=== PATIENT | female | born 1960 | race Caucasian/White ===

== ENCOUNTER 2023-02-25 06:24 | Day surgery (SDC) | payer OTHER ==
[~2023-02-25] VITALS: Ht 157.5 cm; Wt 92.2 kg
[~2023-02-25 06:24] MED LIST: ADVIL200 M1 PO; B-100 COMPLEX100 MG PO; FENOFIBRATE145 MG PO; FLUOXETINE HCL20 MG PO; LISINOPRIL-HCT1 EACH PO; MELOXICAM15 MG PO; METFORMIN HCL500 MG PO; VITAMIN D310 MC1 PO
[2023-02-25 06:36] VITALS: BP 168/85
--- NOTE | 2023-02-25 07:18 | NUR ---
PT GONE. PRAYED FOR SUCCESSFUL PROCEDURE AND HANNAH RECOVERY.
--- NOTE | 2023-02-25 07:49 | NUR ---
02/25/23 0749 Amber Dorsey PT TO PACU ALERT AND AWAKE DENIES PAIN AND JOSE PT CAME IN LL POSITION, ROLLED OVER ONTO HER BACK UPON ARRIVING TO PACU.
[2023-02-25 08:11] VITALS: BP 144/78
--- NOTE | 2023-02-25 08:26 | OR ---
[facility] [address], [place] [address] Signed DATE OF OPERATION: 02/25/2023 SURGEON: Adeola Wilks MD PREOPERATIVE DIAGNOSES: 1. Screening. 2. Personal history of colonic polyps in her early 50s. POSTOPERATIVE DIAGNOSES: 1. 6 mm polyp at hepatic flexure (80 cm). 2. Tortuous sigmoid colon. 3. Moderate left-sided diverticulosis. 4. Minimal to moderate external hemorrhoids. PROCEDURE: Colonoscopy with hot biopsy. ESTIMATED BLOOD LOSS: None. INDICATIONS: Rhonda is a 62-year-old obese diabetic female, asked to see me for a screening colonoscopy. She remembers a colonoscopy in her early 50s in [place], [place]. She thinks maybe there were small polyps removed. She was pretty certain she was told to follow up in 10 years. That would suggest these were hyperplastic polyps. She has no lower GI complaints currently. There is no family history of colon cancer or polyps. In the office, I gave Rhonda a pamphlet on colonoscopy. We had reviewed the nature of the test. There is risk including, but not limited to gas bloating, crampy abdominal pain, bleeding, perforation requiring surgery, and missed diagnosis. We also reviewed the written instructions for the bowel prep line by line. She also understands the need for IV conscious sedation. She knows an adult person has to take her home afterwards. She had expressed understanding and wished to proceed. DESCRIPTION OF PROCEDURE: Rhonda was taken into our endoscopy suite and placed in the left lateral decubitus position. She was given 5 mg of Versed and 100 mcg of fentanyl to cover the case. A digital rectal exam was performed and she has minimal to moderate external hemorrhoids. She had good sphincter tone. There were no masses. The adult colonoscope was introduced and advanced under direct visualization of the camera. It took a few minutes to get through her tortuous sigmoid colon. After that, the scope passed nicely up into Electronically Signed By: ADEOLA WILKS MD 02/25/23 0826 PATIENT NAME: RHONDA ADAME OPERATIVE REPORT DATE OF : 58 REPORT #: [id number] PHYSICIAN: ADEOLA WILKS MD PCP: FRANCESCA FLORES PAC REPORT IS CONFIDENTIAL AND NOT TO BE RELEASED WITHOUT AUTHORIZATION [facility] [address], [place] [address] Signed the cecum itself. Her prep was quite good. We could easily see the appendiceal orifice and the ileocecal valve. The scope was then slowly withdrawn. We took pictures throughout for photodocumentation. We found a 6 mm sessile polyp in the distal hepatic flexure at about 80 cm. It was biopsied and completely destroyed with hot biopsy forceps. We did see the diverticula in the left and sigmoid colon. They were moderate in size, few to moderate in number and scattered about. The rectum itself was unremarkable. Upon retroflexion of the scope, we did not see any pathology above the anal canal. After this, the gas was suctioned out and the colonoscope removed. Rhonda tolerated the procedure quite well. RECOMMENDATIONS: I will see Rhonda back in my office in 7 to 14 days to review her results. Adeola Wilks MD ALB/MODL /[id number] cc: MD Francesca Chaparro PA-C Copies: ADEOLA WILKS MD, ERIKA PAC ~ Electronically Signed By: ADEOLA WILKS MD 02/25/23 0826 PATIENT NAME: RHONDA ADAME OPERATIVE REPORT DATE OF : 58 REPORT #: [id number] PHYSICIAN: ADEOLA WILKS MD PCP: FRANCESCA FLORES REPORT IS CONFIDENTIAL AND NOT TO BE RELEASED WITHOUT AUTHORIZATION
== END 2023-02-25 08:19 | disposition home or self-care (01) ==
LOC: OPS 06:24 → DS 06:24 → OPS 07:30 → DS 07:30 → OPS 08:19
PROVIDERS: ATTEND Colon & Rectal Surgery
PROC: 0DBL8ZX Excision of Transverse Colon, Via Natural or Artificial Opening Endoscopic, Diagnostic (ICD-10-PCS; principal; 2023-02-25 07:30)
DX: Z12.11 Encounter for screening for malignant neoplasm of colon (principal); Z86.010 Personal history of colon polyps; I10 Essential (primary) hypertension; E78.5 Hyperlipidemia, unspecified; E66.9 Obesity, unspecified; E11.9 Type 2 diabetes mellitus without complications; Z79.84 Long term (current) use of oral hypoglycemic drugs; Z68.37 Body mass index [BMI] 37.0-37.9, adult; M19.90 Unspecified osteoarthritis, unspecified site; K63.5 Polyp of colon; K57.30 Diverticulosis of large intestine without perforation or abscess without bleeding; K64.4 Residual hemorrhoidal skin tags
CPT/HCPCS: 99153; G0500; J2250; J3010; J7121

== ENCOUNTER 2023-02-26 16:02 | Inpatient (IN) | payer OTHER ==
[~2023-02-26] VITALS: Ht 162.6 cm; Wt 94.3 kg
[2023-02-26 16:49] LABS: BASOPHILS 0.7 % (0-2); EOSINOPHILS 1.1 % (0-6); HEMOGLOBIN 13.7 g/dL (12.0-18.0); LYMPHOCYTES 19.1 % (24-44); MCH 28.7 (27-36); MCHC 33.3 g/dl (30-36); MONOCYTES 6.8 % (0-12); NEUTROPHILS 72.3 % (39-80); PLATELET COUNT 232 K/uL (140-440); RBC 4.77 M/ul (4.3-5.7); RDW 15.1 (10.5-15.0)
[2023-02-26 16:59] LABS: ALBUMIN/GLOBULIN RATIO 1.05 (1.1-2.4); ANION GAP 11.4 (7-21); BILIRUBIN, TOTAL 0.3 ng/dL (0.2-1.0); BUN/CREATININE RATIO 12.12 (6.0-28.6); CALCIUM 8.7 mg/dL (8.5-10.1); CREATININE, SERUM 0.99 mg/dL (0.55-1.02); POTASSIUM 3.4 mmol/L (3.5-5.1); PROTEIN, TOTAL 7.8 g/dL (6.4-8.2)
[2023-02-26 17:08] LABS: BILIRUBIN, URINE NEGATIVE (negative); BLOOD/HGB, URINE TRACE-I (Negative); KETONE, URINE NEGATIVE (Negative); LEUK ESTERASE, URINE NEGATIVE (negative); NITRITE, URINE NEGATIVE (negative); PH, URINE 7.5 (5-7)
[2023-02-26 17:18] LABS: CASTS, URINE NONE SEEN \\lpf; CRYSTALS, URINE NONE SEEN (0-1+); EPITHELIAL CELLS, URINE 0 /lpf (0-1+); WHITE BLOOD CELLS, URINE 0-1 /HPF (0-5)
[2023-02-26 17:19] LABS: BACTERIA, URINE NONE SEEN /hpf (negative); COLLECTION TYPE, URINE CLEAN CATCH; REFLEX CULTURE, URINE No (No)
--- NOTE | 2023-02-26 19:53 | NUR ---
THIS NURSE RECEIVED REPORT FROM CARLOS A MCINTOSH. PATIENT REMAINS IN ER HEADED TO SURGERY AT THIS TIME PER DR. WILKS. REPORT GIVEN TO AMANDA MCINTOSH.
--- NOTE | 2023-02-26 20:43 | NUR ---
NOTIFIED PT THAT PT CASE IS "JUST STARTING " PER JAGDEEP FROM SURGERY. IN ROOM ALONE, TEARS DOWN FACE, WORRIED ABOUT HIS . REASSURANCE GIVEN, MORE FAMLIY PLANNING TO COME. DENIED NEEDS.
--- NOTE | 2023-02-26 22:14 | CONS ---
[facility] [address] [place], [place] [address] Signed DATE OF CONSULTATION: 02/26/2023 CHIEF COMPLAINT: Right lower quadrant abdominal pain. HISTORY OF PRESENT ILLNESS: Rhonda is a 62-year-old, obese, diabetic female, asked to see me initially for a screening colonoscopy. We did a colonoscopy yesterday. We took a biopsy from what we thought was the hepatic flexure 80 cm. There was a small polyp about 6 mm. She developed pain actually in the right lower quadrant and then she came to the emergency room. She had a right upper quadrant ultrasound and the pelvic ultrasound, which were not helpful. The CT scan shows some inflammation and some retroperitoneal air along that right colon. White count unremarkable, but she certainly has localized peritonitis. I have been asked by the ER physician and come see her here in the emergency room. In the meantime, she has received Rocephin and Flagyl. PAST MEDICAL HISTORY: Depression, hypertension, diabetes, hyperlipidemia, obesity. PAST SURGICAL HISTORY: Includes a colonoscopy in [place], [place] in 2012 and a colonoscopy with Dr. Wilks 02/25/2023. FAMILY HISTORY: Mom had lung cancer. Sister had lung cancer. SOCIAL HISTORY: She is to Cas, at [phone]. Prachi Esparza is her primary care provider. She prefers to [facility]. She has three children. 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 REVIEW OF SYSTEMS: She had 10 systems reviewed and really nothing new to add after being seen her yesterday. ALLERGIES: None. MEDICATIONS: Metformin 500 mg one tablet p.o. b.i.d., vitamin D 1000 unit tablet p.o. daily, lisinopril/hydrochlorothiazide (20/12.5 mg) one tablet p.o. daily, fluoxetine 20 mg one p.o. daily, fenofibrate 145 mg one p.o. daily. PHYSICAL EXAMINATION: Electronically Signed By: ADOELA WILKS MD 02/26/23 2214 PATIENT NAME: RHONDA ADAME CONSULTATION DATE OF : 58 REPORT #: [id number] PHYSICIAN: ADEOLA WILKS MD PCP: PRACHI ESPARZA PAC REPORT IS CONFIDENTIAL AND NOT TO BE RELEASED WITHOUT AUTHORIZATION [facility] [address] [place], [place] [address] Signed VITAL SIGNS: Her blood pressure is 155/78, her heart rate is 85, respiratory rate 22, temperature is 98.6, room air sat is 93% to 98%. She is 5 feet 4 inches, at 92 kg with a body mass index of 35. GENERAL: Rhonda is lying supine here in her ER bed with her , Cas at the bedside. She is complaining of some localized pain in the right lower quadrant. She is not systemically ill or toxic. LUNGS: Clear to auscultation bilaterally. HEART: Regular rate and rhythm without murmurs. ABDOMEN: Obese, but soft. She has some localized peritonitis in the right lower quadrant. LABORATORY DATA: Her white blood count 9.9, hemoglobin 13, neutrophils 72. The electrolytes unremarkable. BUN 12, creatinine 0.99. LFTs are negative. Albumin 4.0, lipase 46. RADIOGRAPHIC STUDIES: I reviewed her ultrasound of right upper quadrant and the pelvis and they were unremarkable. I reviewed the CT scan images well as the report, she does have some thickening in the right colon with some retroperitoneal air near the cecum and up the right colon. ASSESSMENT/PLAN: Rhonda is a 62-year-old obese diabetic female, who has a perforation from her biopsy yesterday during colonoscopy. She and her understand there are times these can heal with conservative measures and antibiotics. However, I think based on her presentation and her CT scan findings, it is probably best we take her to the operating room for laparotomy and repair of this perforation. Occasionally, we do have to resect, but generally we can oversew the perforation. There is risk including, but not limited to bleeding, infection, scarring, change in contour of the skin as well as recurrent perforation or anastomotic leak, incisional hernias and other unforeseen comorbidities. We also reviewed the expected intraop and postop course. They have expressed understanding and wished to proceed. Adeola Wilks MD ALB/MODL /[id number] Electronically Signed By: ADEOLA WILKS MD 02/26/23 2214 PATIENT NAME: RHONDA ADAME CONSULTATION DATE OF : 58 REPORT #: [id number] PHYSICIAN: ADEOLA WILKS MD PCP: PRACHI ESPARZA PAC REPORT IS CONFIDENTIAL AND NOT TO BE RELEASED WITHOUT AUTHORIZATION [address] [address] Signed cc: KYLIE Chen MD Copies: PRACHI ESPARZA ANDREW L MD ~ Electronically Signed By: ADEOLA WILKS MD 02/26/23 2214 PATIENT NAME: RHONDA ADAME CHECO CONSULTATION DATE OF : 58 REPORT #: [id number] PHYSICIAN: ADEOLA WILKS MD PCP: PRACHI ESPARZA REPORT IS CONFIDENTIAL AND NOT TO BE RELEASED WITHOUT AUTHORIZATION
--- NOTE | 2023-02-26 22:18 | NUR ---
CHECKED ON PT FAMILY. DOING FINE, QUESTIONS ANSWERED. NO NEEDS AT THIS TIME.
--- NOTE | 2023-02-26 23:00 | NUR ---
PT ARRIVED FROM PACU ACCOMPAINED BY ARNALDO LUTHER. REPORT RECEIVED. PT WAKES UP TO VOICE, RESPONDS TO FAMILY. 1.5L NC, STATES SHE HAS MILD SLEEP APNEA VIA A HOME TEST. MEADOWS PATENT, PEE URINE. MIDLINE ABD DRESSING C/D/I. RIGHT DOMONIQUE DRAIN DRESSING C/D/I, BULB WITHOUT DRAINAGE WAS JUST EMPTIED IN PACU.
[2023-02-26 23:20] VITALS: BP 143/65
--- NOTE | 2023-02-26 23:29 | NUR ---
02/26/23 2329 Anderson,Radha Heller 2204: PATIENT ARRIVES TO PACU WITH ORAL AIRWAY IN PLACE. REQUIRES JAW HOLDING. NO RESPONSE TO STIMULUS. 2207: LOW BP. PULMONARY NURSE PRACTITIONER AT BEDSIDE. EPHEDRINE GIVEN BY PULMONARY NURSE PRACTITIONER. 2217: BP LOW. SECOND DOSE OF EPHEDRINE GIVEN BY PULMONARY NURSE PRACTITIONER. NO RESPONSE TO STIMULUS. 2220: ORAL AIRWAY OUT. PATIENT OPENS EYES, BUT FALLS BACK TO SLEEP. 2226: O2 VIA MASK LOWERED TO 10 L/MIN. PATIENT OBSTRUCTING WHILE SLEEPING. REQUIRES INTERMITTENT JAW HOLDING. 2235: PATIENT FREQUENTLY AWAKENED TO TAKE DEEP BREATHS. CONTINUES TO OBSTRUCT WHILE SLEEPING. 2245: O2 MASK REMOVED. PATEINT ON ROOM AIR. 2247: NASAL CANNULA PLACED ON PATIENT AT 2 L/MIN. HEAD OF BED RAISED. DENIES PAIN. DENIES NAUSEA. 2300: PATIENT TRANSFERRED TO MED-SURG ROOM. 2310: PATIENT TOLERATED TRANSFER WELL. MORE AWAKE ONCE IN ROOM WITH FAMILY. REPORT GIVEN TO MED-WEARING APPAREL SHAKER.
[2023-02-27] VITALS (8 sets, daily range): BP systolic 123–140; BP diastolic 61–71
--- NOTE | 2023-02-27 00:41 | NUR ---
ADMISSION PROCESS COMPLETED, ASSESSMENT; 1HOUR VS COMPLETED. CPOX IN PLACE, CONTINUES ON 1.5L O2 SATS IN MID 90'S. DRESSINGS UNCHANGED; MEADOWS UNCHANGED. DRANK 300 ML WATER; A/O, SLEEPY. COMPLAINS OF 5/10 PAIN RIGHT SIDE ABD/DOMONIQUE DRAIN AREA. MEDICATED WITH ONE NORCO. DRANK PART OF BEEF BROTH OFFERED TO HER. SCD'S IN PLACE. REMAINS AT BEDSIDE; PLANS TO STAY THE NIGHT.
--- NOTE | 2023-02-27 01:25 | NUR ---
POST SURGERY VS COMPLETED. PT MOSTLY SLEEPY, RESPONDS TO VOICE. STATES PAIN IS BETTER. MIDLINE/BIANCA DRESSINGS C/D/I. BIANCA WITH SMALL AMOUNT SEROSANGUINEOUS DRAINAGE. MEADOWS WITH PEE URINE. SCD'S IN PLACE, CPOX CONTINUES. ON COUCH SL SNORING.
--- NOTE | 2023-02-27 02:27 | NUR ---
PATIENT RESTING COMFORTABLY IN BED WITH EYES CLOSED. BREATHING EVEN AND UNLABORED. O2 IN PLACE AT 1.5 LITERS NC. CONTINUOUS PULSE OX IN PLACE. IV FLUIDS INFUSING. IV SITE WNL. SCD'S IN PLACE. AT BEDSIDE. NO NEEDS EXPRESSED AT THIS TIME. CALL LIGHT IN REACH. SAFETY PRECAUTIONS IN PLACE.
--- NOTE | 2023-02-27 04:50 | NUR ---
VS I/O COMPLETE. ASSESSMENT UNCHANGED; ABD DRESSING INTACT C/D/I. 10 ML SENGUINOUS DRAINAGE. MEADOWS WITH PEE URINE. IV UNCHANGED. PT AWAKE, SATS MID 90'S 1.5 L, NOW ON RA. CPOX READING 96%. STATED PAIN, MEDICATED WITH TYLENOL. AT BEDSIDE, OFFERED CLEARS, ACCEPTED ONLY WATER. STATES SHE SLEPT WELL.
[2023-02-27 05:28] LABS: BASOPHILS 0.4 % (0-2); HEMATOCRIT 36.8 % (35.0-50.0); HEMOGLOBIN 12.1 g/dL (12.0-18.0); LYMPHOCYTES 7.5 % (24-44); MCH 28.3 (27-36); MCV 85.8 fl (81-99); MONOCYTES 4.2 % (0-12); NEUTROPHILS 87.9 % (39-80); PLATELET COUNT 194 K/uL (140-440); RBC 4.28 M/ul (4.3-5.7); RDW 15.3 (10.5-15.0)
[2023-02-27 05:39] LABS: ANION GAP 15.2 (7-21); BUN/CREATININE RATIO 8.62 (6.0-28.6); CALCIUM 8.1 mg/dL (8.5-10.1); CREATININE, SERUM 1.16 mg/dL (0.55-1.02); MAGNESIUM 1.7 mg/dL (1.8-2.4); PHOSPHORUS, INORGANIC 3.2 mg/dL (2.5-4.9); POTASSIUM 3.2 mmol/L (3.5-5.1)
--- NOTE | 2023-02-27 06:24 | NUR ---
PT A/O, ADMITTED AFTER LAPAROTOMY FOR PERFORATED BOWEL. COLONSCOPY WITH POLYP REMOVED ON 02/25/23. 1.5LNC WHILE SLEEP, FAMILY STATES PT HAS SLEEP APNEA BUT NEEDS A SLEEP STUDY. CURRENTLY ON ROOM AIR, CPOX READING MID 90'S. GAUZE AND TAPE COVER MIDLINE INCISION, C/D/I. RQ DOMONIQUE DRAIN SITE WITH GAUZE AND TAPE, 10 MLS REMOVED THIS AM. MEADOWS, WHICH IS NOT CHRONIC WITH QS PEE URINE. SCD'S IN PLACE PER ORDER. ON CLEARS, GIVEN BEEF BROTH THIS AM, DRINKING ICE WATER WELL. D5LR INFUSES INTO RHAND IV. PT WITH SUPPORTING AND FAMILY.
--- NOTE | 2023-02-27 06:33 | OR ---
[facility] [address] [place], [place] [address] Signed DATE OF OPERATION: 02/26/2023 SURGEON: Adeola Wilks MD PREOPERATIVE DIAGNOSIS: Post polypectomy colonic perforation (hepatic flexure). POSTOPERATIVE DIAGNOSIS: Post polypectomy colonic perforation (hepatic flexure). PROCEDURE: 1. Laparotomy. 2. Primary repair of large bowel perforation in two layers (hepatic flexure). 3. Drain placement posterior hepatic flexure. ESTIMATED BLOOD LOSS: None. FINDINGS: Rhonda indeed had a perforation at the hepatic flexure posteriorly in the retroperitoneum. We could see the air bubble little swelling. We mobilized that hepatic flexure up to where we could see the actual perforation and closed in two layers. INDICATIONS: Rhonda is a 62-year-old, obese, diabetic female, asked to see me for a screening colonoscopy. We did that for her yesterday. We took out a small 6 mm polyp hot biopsy forceps at the hepatic flexure. She developed pain actually down near her right lower quadrant. She had come into the emergency room to be evaluated. Her white count was normal. Vital signs were fine. Ultrasound of the pelvis was unremarkable. Ultrasound of the right upper quadrant showed gallstones, but no other issues. She finally had a CT scan of abdomen and pelvis and it showed the bowel wall thickening in the retroperitoneal air. Of course, I was called by the emergency room physician to come see her in the emergency room. I had met with Rhonda and her , Cas. In the meantime, she did receive her Rocephin and Flagyl along with her subcutaneous heparin. I explained to Rhonda and her that sometimes these can heal with conservative measures, but I felt based on her presentation and her CT scan findings and her overall health status, it was better we take her to the operating room for a laparotomy and primary repair. It is very rare we have to actually resect sections of the colon. I reviewed within the expected intraop and postop course. There is risk of course, Electronically Signed By: ADEOLA WILKS MD 02/27/23 0633 PATIENT NAME: RHONDA ADAME OPERATIVE REPORT DATE OF : 58 REPORT #: [id number] PHYSICIAN: ADEOLA WILKS MD PCP: FRANCESCA FLORES PAC REPORT IS CONFIDENTIAL AND NOT TO BE RELEASED WITHOUT AUTHORIZATION [facility] [address] [place] [id number] Signed including, but not limited to bleeding, infection, scarring, change in contour of the skin as well as continued leak from the bowel or other unforeseen comorbidities including incisional hernias. They had expressed understanding and wished to proceed. DESCRIPTION OF PROCEDURE: We took Rhonda to the operating room and placed in the supine position. She was placed under general endotracheal tube anesthesia. SCDs were utilized. A Santana catheter was inserted without difficulty with return of clear yellow urine. She was prepped and draped in the usual sterile fashion. A standard periumbilical incision was made, carried in the abdomen bluntly with the cautery. She has a small umbilical hernia containing fat, so we divided that from the fascia and reduced all the fat from the hernia sac and discarded the fat. With our Hunter and Worton retractors, we worked our way over to the hepatic flexure and I could see some air bubbles laterally in the retroperitoneum. I took down the hepatic flexure of the cautery simply rolled the hepatic flexure up until we could see some soiling and sure enough we found a small perforation there may be 3 mm in diameter. We placed a moist lap behind that to just keep the hepatic flexure up into our operative field. I then closed in two layers with Vicryl and silk sutures. The wound was then irrigated and suctioned out until clear. We brought a #10 flat Raad drain through the abdominal wall and we just placed underneath the area of hepatic flexure. We left the hepatic flexure down over top of that. The drain was held in place with an interrupted 2-0 nylon suture at the level of the skin. The small bowel was put back into position and covered with the omentum. We then closed the abdominal wall with interrupted hepecd-ad-awwad #1 PDS sutures. The umbilicus was brought back down to the midline fascia with an interrupted 2-0 PDS suture. Local anesthetic was copiously injected into the abdominal wall and subcutaneous tissues. The wound was irrigated and suctioned out until clear. We brought the dermis back together with interrupted 3-0 subcuticular Monocryl sutures. Skin edges were reapproximated with sherry. Dry gauze and tape were then applied. We left her Santana catheter in place. She was transferred over to her hospital bed, weaned from her anesthesia, extubated in the OR, and taken to recovery room in stable condition. Adeola Wilks MD ALB/MODL /[id number] Electronically Signed By: ADEOLA WILKS MD 02/27/23 0633 PATIENT NAME: RHONDA ADAME OPERATIVE REPORT DATE OF : 58 REPORT #: [id number] PHYSICIAN: ADEOLA WILKS MD PCP: FRANCESCA FLORES REPORT IS CONFIDENTIAL AND NOT TO BE RELEASED WITHOUT AUTHORIZATION [address] [address] Signed cc: MD Francesca Chaparro PA-C Copies: ADEOLA WILKS MD, ERIKA PAC ~ Electronically Signed By: ADEOLA WILKS MD 02/27/23 0633 PATIENT NAME: RHONDA ADAME OPERATIVE REPORT DATE OF : 58 REPORT #: [id number] PHYSICIAN: ADEOLA WILKS MD PCP: FRANCESCA FLORES REPORT IS CONFIDENTIAL AND NOT TO BE RELEASED WITHOUT AUTHORIZATION
--- NOTE | 2023-02-27 06:58 | NUR ---
REPORT RECEIVED FROM ARNALDO PATEL. PT AWAKE AND ALERT, WATCHING TV, AT BEDSIDE. DR. WILKS TO BEDSIDE FOR ROUNDS, UPDATED BY THIS RN AND ARNALDO PATEL. NEW IV FLUIDS STARTED, IV REMAINS WNL WITH NO S/S OF PHELBITIS PRESENT. DR WILKS UPDATED ON PT STATUS. PT AND FAMILY VERBALIZE UNDERSTANDING OF PLAN OF CARE. NO ADDITIONAL REQUESTS OR COMPLAINTS. CALL LIGHT WITHIN REACH. BED RAILS UP. THIS RN ASSUMING CARE OF PT WITH ARNALDO OLIVAS.
--- NOTE | 2023-02-27 07:14 | EKG ---
[facility] [address] [facility] [place], [place] [address] Signed Normal sinus rhythm Nonspecific ST and T wave abnormality Abnormal ECG No previous ECGs available Confirmed by SYMONE TRUJILLO MD ([id number]) on 02/27/2023 7:14:24 AM Electronically Signed By: SYMONE TRUJILLO 02/27/23 0714 PATIENT NAME: CAMRON ADAME CHECO Electrocardiogram DATE OF : 58 PHYSICIAN: SYMONE TRUJILLO REPORT #: [id number] REPORT IS CONFIDENTIAL AND NOT TO BE RELEASED WITHOUT AUTHORIZATION
--- NOTE | 2023-02-27 07:43 | NUR ---
REPORT RECIEVED FROM ARNALDO PATEL. PT LYING IN BED AWAKE AND ALERT, AND DR. WILKS AT THE BEDSIDE. BED RAILS UP, CALL LIGHT WITHIN REACH. ASSUMING CARE OF PT WITH ARNALDO MARIEE.
--- NOTE | 2023-02-27 08:38 | NUR ---
MORNING ASSESSMENT AND MEDICATION DUE, MEDICATION GIVEN (SEE EMAR). PT REPORTS 3/10 PAIN IN R ABDOMINAL AREA, STATES "IT'S NOTHING LIKE IT WAS YESTERDAY, SO THAT'S MUCH BETTER". PT REQUESTS PAIN MEDICATION WHEN AVAILABLE, GIVEN (SEE EMAR). MEADOWS CATHETER DC'D PER ORDER, DC'D WNL, CATHETER TIP INTACT, 10ML REMOVED FROM BALLOON PRIOR TO REMOVAL, TOLERATED WELL. QUANTITY SUFFICIENT CLEAR YELLOW URINE EMPTIED FROM BAG. LUNG SOUNDS CLEAR IN ALL LOBES, CPOX REMAINS IN PLACE, O2 SATURATION >92%. GENERALIZED EDEMA PRESENT IN BOTH HANDS, NO EDEMA IN BLE. PT DENIES ANY NUMBNESS OR TINGLING. SCDs IN PLACE WHILE PT IN BED, REMOVED WHEN PT AMBULATED TO CHAIR FOR BREAKFAST. MILD ABDOMINAL DISTENTION PRESENT, PT STATES R SIDE IS TENDER TO PALPATION. BOWEL TONES PRESENT, HYPOACTIVE. PT DENIES NAUSEA AT THIS TIME, LAST BM WAS "YESTERDAY MORNING" PER PT. PT TOLERATING CLEAR LIQUID DIET WELL. SURGICAL INCISION WNL, NO REDNESS/SWELLING, LEIGHTON INTACT, SCANT AMOUNT OF SEROSANGUINOUS DRAINAGE NOTED ON GOWN, NEW GOWN OFFERED, REFUSED BY PT. PT AFEBRILE THIS MORNING, NO QUESTIONS OR CONCERNS AT THIS TIME, FAMILY AT THE BEDSIDE VISITING. CALL LIGHT WITHIN REACH, CHAIR LOCKED.
--- NOTE | 2023-02-27 09:32 | NUR ---
IN TO ANSWER CALL LIGHT. PT REPORTING TOILETING NEEDS. SBA FROM RECLINER TO RESTROOM. 250ML VOID NOTED. SBA FROM RESTROOM BACK TO RECLINER. NEW GOWN PROVIDED. PT DENIES ANY OTHER NEEDS AT THIS TIME. CALL LIGHT IN REACH. FAMILY IN ROOM.
[2023-02-27] MEDS ORDERED: CELEBREX200 MG PO ×2 (09:34)
--- NOTE | 2023-02-27 09:34 | NUR ---
MED REC COMPLETE
--- NOTE | 2023-02-27 10:17 | NUR ---
PT UP TO CHAIR VISITING WITH DAUGHTER AND SON IN LAW. PT REQUESTS ADDITIONAL LEMON ICE TO SOOTHE THROAT FROM SURGERY, GIVEN. PT STATES PAIN REMAINS AT 2-3/10 BUT "IS BETTER THAN EARLIER THIS MORNING". PT STATES NO FURTHER NEEDS AT THIS TIME, CALL LIGHT WITHIN REACH, CHAIR IN LOCKED POSITION.
--- NOTE | 2023-02-27 11:19 | NUR ---
HOURLY ROUNDING, PT UP TO CHAIR CONTINUES TO VISIT WITH FAMILY. PT STATES PAIN IS "ABOUT THE SAME BEFORE" AND REQUESTS PAIN MEDICATION THE NEXT TIME IT IS DUE. PT UP TO RESTROOM WITH SBA AND LINE AND TUBE MANAGEMENT. PT BACK TO CHAIR, FOOT OF CHAIR RAISED. PT ON PHONE WITH SISTER. PT STATES NO FURTHER NEEDS AT THIS TIME, CALL LIGHT WITHIN REACH, CHAIR IN LOCKED POSITION.
--- NOTE | 2023-02-27 12:41 | NUR ---
HOURLY ROUNDING. PT UP TO CHAIR VISITING WITH FAMILY. PT UP FOR WALK WITH THIS RN 1 LAP AROUND UNIT WITH LINE AND TUBE MANAGEMENT. PT STATES "I FEEL PRETTY GOOD" DURING WALK. PT BACK TO ROOM TO SHOWER, IV SALINE LOCKED AND COVERED FOR SHOWER. CPOX OFF DURING SHOWER. PT STATES SHE FEELS COMFORTABLE TAKING HER SHOWER INDEPENDENTLY IN SHOWER CHAIR, PT INSTRUCTED TO PULL CALL LIGHT IN SHOWER WHEN FINISHED FOR AMBULATING BACK TO CHAIR. SHOWER SUPPLIES, ORAL CARE SUPPLIES, TOWELS, AND NEW GOWN AND SOCKS PROVIDED TO PT. PT STATES NO FURTHER NEEDS AT THIS TIME, FAMILY IN ROOM.
--- NOTE | 2023-02-27 12:59 | NUR ---
PT BACK TO CHAIR AFTER SHOWER, IVF CONTINUED PER ORDER. CPOX DC'D PER PROTOCOL. PT REQUESTS PAIN MEDICATION AT THIS TIME, REPORTS 3/10 PAIN IN R ABDOMEN, GIVEN (SEE EMAR). PT STATES NO FURTHER NEEDS AT THIS TIME, CALL LIGHT WITHIN REACH, FAMILY AT THE BEDSIDE, CHAIR IN LOCKED POSITION.
--- NOTE | 2023-02-27 14:07 | NUR ---
AFTERNOON ASSESSMENT. PT STATES PAIN IS "ABOUT THE SAME BEFORE", DENIES NEED FOR PAIN MEDICATION AT THIS TIME. IVF CONTINUOUS PER ORDER, ABX GIVEN PER ORDER. LUNG SOUNDS CLEAR, O2 SAT >95%. EDEMA IN BILAT HANDS IMPROVING. PT BACK IN BED VISITING WITH FAMILY, SCDs NOT IN PLACE D/T PT AMBULATING FREQUENTLY. BOWEL TONES NOW ACTIVE, ABDOMEN REMAINS MILDLY DISTENDED, TENDER TO PALPATION. PT STATES "IT FELT LIKE I ALMOST PASSED SOME GAS". PT TOLERATING CLEAR LIQUID DIET WELL. PT VOIDING QUANTITY SUFFICIENT CLEAR YELLOW URINE. SURGICAL INCISION C/D/I, MEASURED (SEE WOUND ASSESSMENT), LEIGHTON IN PLACE, NO REDNESS/SWELLING IN THE AREA. DOMONIQUE DRAIN INSERTION SITE C/D/I, SEROSANGUINOUS DRAINAGE IN TUBING AND BULB, TUBE STRIPPED AND BULB EMPTIED, SUCTION REAPPLIED. PT STATES NO FURTHER NEEDS AT THIS TIME, CALL LIGHT WITHIN REACH, FAMILY AT THE BEDSIDE, BED RAILS UP.
--- NOTE | 2023-02-27 15:39 | NUR ---
HOURLY ROUNDING. PT LYING IN BED VISITING WITH FAMILY. PT STATES "I FEEL NO PAIN NOW". PT STATES NO FURTHER NEEDS AT THIS TIME, CALL LIGHT WITHIN REACH, BED RAILS UP.
--- NOTE | 2023-02-27 16:37 | NUR ---
HOURLY ROUNDING. PT LYING IN BED WATCHING TV WITH FAMILY. PT STATES NO NEEDS AT THIS TIME AND STATES PAIN CONTINUES TO BE 0/10. CALL LIGHT WITHIN REACH, BED RAILS UP.
--- NOTE | 2023-02-27 16:49 | NUR ---
PT HERE FOR PERFORATED BOWEL, LAPAROTOMY DONE ON 02/26/23. SBA WITH LINE AND TUBE MANAGEMENT, PT STEADY ON FEET. PT TOLERATES CLEAR LIQUID DIET WELL. NO BM OR PASSING GAS YET THIS SHIFT. CPOX DC'D THIS SHIFT PER PROTOCOL AND O2 SATURATION HAS BEEN >94% CONSISTENTLY. PT STARTED BACK ON METFORMIN DOSE TODAY, PRN BLOOD GLUCOSE CHECKS. MEADOWS CATHETER DC'D THIS MORNING PER ORDER, PT VOIDING QUANTITY SUFFICIENT CLEAR YELLOW URINE. PAIN HAS BEEN <3/10 TODAY, PT REQUESTED PRN PAIN MEDICATION WHEN DUE THIS SHIFT. INCISION IS C/D/I, EDGES WELL APPROXIMATED WITH SCANT SEROSANGUINOUS DRAINAGE THROUGHOUT SHIFT. SURGICAL DRESSINGS REMOVED THIS MORNING BY DR. WILKS AT THE BEDSIDE. DOMONIQUE DRAIN IN PLACE, DRAINING SMALL AMOUNTS OF SEROUS FLUID THROUGHOUT SHIFT.R HAND IV PATENT AND IVF CONTINUOUS PER ORDER. PT USES CALL LIGHT APPROPRIATELY AND HAS MANY FAMILY MEMBERS IN AND OUT OF ROOM THROUGHOUT THE DAY.
--- NOTE | 2023-02-27 17:19 | NUR ---
HOURLY ROUNDING. PT LYING IN BED WITH LIGHTS OFF, AT THE BEDSIDE. PT STATES "I THINK I OVERDID IT A LITTLE TODAY" AND STATES PAIN IS NOW A 6/10, REQUESTS PAIN MEDICATION, GIVEN (SEE EMAR). EDUCATION PROVIDED ON PAIN CONTROL MEASURES AND USING CALL LIGHT. PT STATES SHE IS HAVING "BACK SPASMS WITH THE PAIN. PT UP TO RESTROOM, VOIDS CLEAR YELLOW URINE, BACK TO BED VIA SBA AND LINE AND TUBE MANAGEMENT. REMAINS AT THE BEDSIDE, PT STATES NO FURTHER NEEDS AT THIS TIME, CALL LIGHT WITHIN REACH, BED RAILS UP.
--- NOTE | 2023-02-27 18:10 | NUR ---
HOURLY ROUNDING, PT STATES PAIN CONTINUES TO BE 6/10. REQUESTING ADDITIONAL PAIN MEDICATION, GIVEN (SEE EMAR). INCISION AND DOMONIQUE DRAIN SITES ASSESSED, WNL. PT STATES PAIN IS AROUND DRAIN AREA, STATES SHE FEELS LIKE SHE NEEDS TO "PASS GAS" BUT HAS NOT YET. EDUCATION ON MOVEMENT POST-OP AND HELPING WITH PAIN, PT VERBALIZES UNDERSTANDING. PT STATES SHE WOULD LIKE TO REST AFTER PAIN MEDICATION GIVEN, STATES SHE WOULD LIKE TO USE THE NC O2 AGAIN TONIGHT, VITALS TAKEN AND O2 SAT DOWN TO 87% AFTER PT BEGINS TO FALL ASLEEP, 1.5L NC IN PLACE, O2 SAT BACK UP TO 96%. PT STATES NO FURTHER NEEDS AT THIS TIME, CALL LIGHT WITHIN REACH, BED RAILS UP, AT THE BEDSIDE.
--- NOTE | 2023-02-27 19:45 | NUR ---
REPORT RECEIVED FROM DAY SHIFT NURSE. PT REQUESTING PAIN MEDICATIONS AT THIS TIME AND WANTING TO GO FOR A WALK. PT AMBULATED ONCE AROUND NURSING STATION. TOLERATED WELL. PAIN MEDS GIVEN PER REQUEST. SEE EMAR. NO OTHER NEEDS AT THIS TIME. INCISION TO ABDOMEN C,D,I. BIANCA DRAIN IN PLACE AND DRAINING MINIMAL SEROSANGUINOUS FLUID. SCD'S APPLIED AND IN PLACE. CALL LIGHT WITHIN REACH. SAFETY PRECAUTIONS IN PLACE. WILL CONTINUE TO MONITOR.
--- NOTE | 2023-02-28 00:20 | NUR ---
PT ASKING FOR PAIN MEDS AT THIS TIME. PRN MEDICATION GIVEN. ICE WATER AND ICE CHIPS PROVIDED. NO OTHER NEEDS AT THIS TIME. CALL LIGHT WITHIN REACH. IV FLUIDS INFUSING. IV INTACT. BIANCA DRAIN IN PLACE. INCISION SITE C,D,I. NO SIGNS OF INFECTION. SCD'S IN PLACE. SAFETY PRECAUTIONS IN PLACE. WILL CONTINUE TO MONITOR.
[2023-02-28 04:56] VITALS: BP 140/74
--- NOTE | 2023-02-28 05:22 | NUR ---
PT REQUESTING PAIN MEDS AT THIS TIME. PRN NORCO GIVEN. SEE EMAR. PT AMBULATED TO THE BATHROOM WITH STANDBY ASSIST. TOLERATED WELL. PT HELPED BACK TO BED WITH MINIMUM ASSISTANCE. IV FLUIDS INFUSING. SCD'S APPLIED. NO OTHER NEEDS AT THIS TIME. CALL LIGHT WITHIN REACH. SAFETY PRECAUTIONS IN PLACE.
--- NOTE | 2023-02-28 07:42 | NUR ---
RECIEVED REPORT FROM ARNALDO OBRIEN. PT LYING IN BED, DR. WILKS AT THE BEDSIDE. PT STATES SHE BEGAN PASSING GAS THIS MORNING, STATES PAIN IS 1/10 AT THIS TIME. CALL LIGHT WITHIN REACH, BED RAILS UP, PT STATES NO FURTHER NEES AT THIS TIME.
--- NOTE | 2023-02-28 08:15 | NUR ---
UR NOTE [facility]CG GENERAL SURGERY OR PROCEDURE (GRG) 02/26/23 MET CLINICAL INDICATIONS FOR PROCEDURE MET STAGE 1 02/27/23 MET STAGE 2 LOS DAY 2
--- NOTE | 2023-02-28 09:00 | NUR ---
MORNING ASSESSMENT AND MEDICATIONS DUE, GIVEN (SEE EMAR). PT STATES PAIN IS 5/10, REQUESTING PAIN MEDICATION, GIVEN (SEE EMAR). PT AMBULATES TO RESTROOM WITH SBA AND LINE AND TUBE MANAGEMENT. PT VOIDING QUANTITY SUFFICIENT CLEAR YELLOW URINE. TRACE EDEMA REMAINS IN BILAT HANDS, IMPROVING. PT MOVED FROM CLEAR LIQUIDS TO FULL LIQUID DIET THIS MORNING, PT HAS NOT YET EATEN BREAKFAST. PT HAS HAD FLATULENCE THIS MORNING, NO BM YET. SURGICAL INCISION EDGES WELL APPROXIMATED, LEIGHTON IN PLACE, NO REDNESS/SWELLING AROUND AREA. NO DRAINAGE NOTED FROM INCISION. DOMONIQUE DRAIN IN PLACE. INSERTION SITE WNL, NO REDNESS/SWELLING. SCANT AMOUNT OF SEROUS FLUID SEEN IN TUBING AND BULB. PT HAS DAUGHTER AND SON IN LAW AT THE BEDSIDE. PT STATES NO QUESTIONS AT THIS TIME, STATES SHE IS READY TO GO FOR WALKS TODAY AFTER REINFORCING EDUCATION ON WALKING RELATED TO PAIN. PT STATES NO FURTHER NEEDS AT THIS TIME, CALL LIGHT WITHIN REACH, BED RAILS UP.
--- NOTE | 2023-02-28 09:02 | NUR ---
VERBL ORDER OBTAINED FROM DR. WILKS TO CHANGE METFORMIN PER HOME SCHEDULE AND TO CANCEL BLOOD SUGAR CHECKS. PATIENT REPORTS SHE TAKES METFORMIN 500MG PO AT BEDTIME/DAILY, MEDICATION FREQUENCY CHANGED AT THIS TIME.
[2023-02-28 09:09] VITALS: BP 149/80
--- NOTE | 2023-02-28 09:26 | NUR ---
MORNING MEDICATIONS GIVEN (SEE EMAR). PT RATES PAIN 8/10, REQUESTS PAIN MEDICINE, GIVEN (SEE EMAR). PT UP FOR WALK WITH ARNALDO DELEON. PT BACK TO BED, HAS DAUGHTER AND AT THE BEDSIDE, BREAKFAST AT THE BEDSIDE. PT STATES NO FURTHER NEEDS AT THIS TIME, CALL LIGHT WITHIN REACH, BED RAILS UP.
--- NOTE | 2023-02-28 09:41 | NUR ---
PATIENT NOT IN ROOM. REVENUE LIAISON STATES SHE IS WALKING IN HALLS WITH FAMILY. INDICATED PATIENT IS PLANNING DISCHARGE HOME WITH . WILL CHECK BACK LATER.
--- NOTE | 2023-02-28 10:25 | NUR ---
HOURLY ROUNDING. PT RESTING WITH EYES CLOSED, RR 18 BREATHING EVEN AND UNLABORED ON RA. HOB RAISED >30 DEGREES. CALL LIGHT WITHIN REACH, BED RAILS UP.
--- NOTE | 2023-02-28 11:30 | NUR ---
HOURLY ROUNDING. PT RESTING WITH EYES CLOSED. RR 18, BREATHING EVEN AND UNLABORED ON RA. HOB RAISED >30 DEGREES. CALL LIGHT WITHIN REACH, BED RAILS UP, DAUGHTER AT THE BEDSIDE.
--- NOTE | 2023-02-28 12:26 | NUR ---
PT STATES SHE NEEDS TO USE RESTROOM, AMBULATES TO RESTROOM VIA SBA. PT STATES PAIN IS 5/10 AT THIS TIME, REQUESTS PAIN MEDICATION, GIVEN (SEE EMAR). PT VISITING WITH DAUGHTER AND SON IN LAW. CASE MANAGEMENT AT THE BEDSIDE. DISCUSSED GOING FOR A SECOND WALK WITH PT, PT STATES SHE WOULD LIKE TO THIS AFTERNOON. PT STATES "I FEEL LIKE I MIGHT HAVE TO HAVE A BOWEL MOVEMENT AT SOME POINT". PT STATES NO FURTHER NEEDS AT THIS TIME, CALL LIGHT WITHIN REACH, BED RAILS UP.
[2023-02-28 13:59] VITALS: BP 161/75
--- NOTE | 2023-02-28 14:02 | NUR ---
VISITED WITH PATIENT AND ADULT DAUGHTER IN ROOM. PATIENT AWAKE, ORIENTED. PATIENT PLANS TO RETURN HOME AT DISCHARGE. WILL PROVIDE TRANSPORTATION. ADULT DAUGHTER BEAR STATES SHE CAN HELP HER AT HOME WITH ANYTHING NEEDED. PATIENT HAS BEEN AMBULATING IN THE HALLS TODAY. FEELS STEADY ON FEET. DOES NOT USE DME PRIOR. IS NOT WORRIED REGARDING AFFORDING MEDS/FOOD/UTILITIES. PATIET IS EMPLOYED AND DRIVES SELF NORMALLY. NO DISCHARGE NEEDS KNOWN AT THIS TIME.
--- NOTE | 2023-02-28 14:19 | NUR ---
UR NOTE MCG GENERAL SURGERY OR PROCEDURE (GRG) INPATIENT 02/28/23 VARIANCE STAGE 3 LOS 3 DAYS
--- NOTE | 2023-02-28 15:13 | NUR ---
PATIENT AMBULATED IN HALLWAY WITH THIS RN, TOLERATED WELL. PATIENT TO CHAIR POST WALK. DAUGHTER AT BEDSIDE TO VISIT. NO NEEDS AND OR DISTRESS AT THIS TIME.
--- NOTE | 2023-02-28 15:30 | NUR ---
AFTERNOON ASSESSMENT. NO CHANGES IN WOUND BUT FOR SCANT AMOUNT OF SEROSANGUINOUS DRAINAGE FROM INCISION AND DOMONIQUE DRAIN INSERTION SITE. BOTH SITES CLEAN AND NO REDNESS/SWELLING. PT STATES PAIN IS 6/10, REQUESTS PAIN MEDICATION, GIVEN. SWELLING IN BILAT HANDS IMPROVING, CONTINUES TO BE TRACE AMOUNT. PT TOLERATING FULL LIQUID DIET WELL, HAVING FLATULENCE, NO BM YET. PT VOIDING QUANTITY SUFFICIENT CLEAR YELLOW URINE. PT STATES NO FURTHER NEEDS AT THIS TIME. CALL LIGHT WITHIN REACH, BED RAILS UP, FAMILY AT THE BEDSIDE.
--- NOTE | 2023-02-28 16:08 | NUR ---
HOURLY ROUNDING. PT UP TO CHAIR VISITING WITH AND DAUGHTER. PT STATES PAIN IS 5/10, REQUESTS PAIN MEDICATION WHEN DUE. ICE PACK, ICE, AND ICE WATER PROVIDED PER PT REQUEST. PT STATES NO FURTHER NEEDS AT THIS TIME. CALL LIGHT WITHIN REACH, BED RAILS UP.
[2023-02-28 16:50] VITALS: BP 153/78
--- NOTE | 2023-02-28 17:00 | NUR ---
PT UP TO RESTROOM, GOES BACK TO BED VIA SBA. PT STATES SHE FEELS LIKE SHE "MIGHT WANT TO FALL ASLEEP". O2 SAT CHECKED WITH VITALS AND IS 86% ON RA, 1.5L O2 VIA NC APPLIED, O2 SAT 95% AFTER APPLICATION. PT REGULARLY USING I.S. DEVICE, STATES SHE FEELS LIKE SHE "MIGHT HEAR SOME WHEEZING". LUNG SOUNDS CLEAR AT THIS TIME. PT STATES NO FURTHER NEEDS AT THIS TIME, CALL LIGHT WITHIN REACH, BED RAILS UP, FAMILY AT THE BEDSIDE.
--- NOTE | 2023-02-28 18:28 | NUR ---
HOURLY ROUNDING. PT REQUESTS CUP OF ICE, GIVEN. PT STATES NO NEEDS AT THIS TIME, CALL LIGHT WITHIN REACH, BED RAILS UP.
--- NOTE | 2023-02-28 18:44 | NUR ---
PT HERE FOR PERFORATED BOWEL, LAPAROTOMY DONE ON 02/26/23. SBA WITH LINE AND TUBE MANAGEMENT, PT STEADY ON FEET. PT TOLERATING FULL LIQUID DIET WELL. NO BM THIS SHIFT, BUT IS HAVING FLATULENCE. PRN BLOOD GLUCOSE CHECKS. PT VOIDING QUANTITY SUFFICIENT CLEAR YELLOW URINE. PAIN HAS GONE UP TO 6/10 TODAY, PAIN MEDICATION GIVEN AND WALKING TO MANAGE PAIN THIS SHIFT. INCISION IS C/D/I, EDGES WELL APPROXIMATED WITH SCANT SEROSANGUINOUS DRAINAGE THROUGHOUT SHIFT. DOMONIQUE DRAIN IN PLACE, DRAINING SMALL AMOUNTS OF SEROUS FLUID THROUGHOUT SHIFT. LEFT HAND IV PATENT AND IVF CONTINUOUS PER ORDER. PT USES CALL LIGHT APPROPRIATELY AND HAS MANY FAMILY MEMBERS IN AND OUT OF ROOM THROUGHOUT THE DAY.
--- NOTE | 2023-02-28 19:07 | NUR ---
PT CALL LIGHT ON. PT REQUESTS ASSISTANCE UP TO RESTROOM. IV PUMP ALARMING, IV ABX AND FLUSH COMPLETE. IV DRESSING LOOSE. DRESSING CHANGED PER PROTOCOL. STAND BY ASSIST UP TO RESTROOM. PT VOIDS WIHTOUT ISSUE. JUAN CARLOS CARE PER PT. STAND BY ASSIST BACK TO BED. IV FLUIDS RESTARTED. PT REPORTS 4/10 PAIN IN ABDOMEN THAT IS WELL CONTROLLEDA THIS TIME. FRESH ICE PACK AND ICE WATER PROVIDED. PTS AT BEDSIDE AND SUPPORTIVE OF PT. SCD'S IN PLACE. NO ADDITIONAL REQUESTS OR COMPLAINTS. CALL LIGHT WITHIN REACH. BED RAILS UP.
--- NOTE | 2023-02-28 19:15 | NUR ---
REPORT RECIEVED FROM DEISY MCINTOSH AND ADRIENNE MCINTOSH. PATIENT RESTING IN BED. BOARD UPDATED. CALL LIGHT WITHIN REACH NO OTHER NEEDS AT THIS TIME.
--- NOTE | 2023-02-28 20:30 | NUR ---
ASSESSMENT AND VITAL SIGNS DONE. PATIENT UP TO BR, SBA. PATIENT COMPLAINS OF PAIN AT 5/10. PRN PAIN MEDICATION ADMINISTERED, SEE MAR. SCHEDULED MEDICATIONS ADMINISTERED PER ORDER, SEE MAR. ABDOMIN ASSESSED, MIDLINE INCISION CDI AND LEIGHTON INTACT. BIANCA DRAIN HAS SCANT AMOUNT OF SS FLUID. PATIENT 93% ON RA. 1.5LNC OXYGEN FOR RESTING IN BED. CALL LIGHT WITHIN REACH. NO OTHER NEEDS AT THIS TIME. IV ASSESSED AND FLUSHED WITH 10 MLS OF NS, WNL. IVF INFUSING PER ORDER, SEE MAR.
[2023-02-28 20:33] VITALS: BP 169/77
--- NOTE | 2023-02-28 22:27 | NUR ---
IV ABX INFUSING PER ORDER, SEE MAR. PATIENT STATES PAIN IS BETTER AT 3/10. CALL LIGHT WITHIN REACH. NO OTHER NEEDS AT THIS TIME. PATIENT RESTING IN BED.
--- NOTE | 2023-03-01 00:06 | NUR ---
PATIENT RESTING IN BED WITH EYES CLOSED. RESP OBSERVED. CALL LIGHT WITHIN REACH. NO OTHER NEEDS AT THIS TIME.
--- NOTE | 2023-03-01 02:30 | NUR ---
PATIENT CALLED TO USE THE BR. Pt SBA TO BR. Pt BACK TO BED. Pt COMPLAINS OF PAIN AND WOULD LIKE A PAIN MEDICATION. MICAH MCINTOSH ADMINISTERED PRN PAIN MEDICATION, SEE MAR. CALL LIGHT WITHIN REACH. NO OTHER NEEDS AT THIS TIME.
--- NOTE | 2023-03-01 03:59 | NUR ---
PATIENT RESTING IN BED. RESP OBSERVED. CALL LIGHT WITHIN REACH. NO OTHER NEEDS AT THIS TIME.
[2023-03-01 06:09] VITALS: BP 167/77
--- NOTE | 2023-03-01 07:12 | NUR ---
RECIEVED REPORT FROM ARNALDO HITCHCOCK AND ARNALDO OBRIEN. PT RESTING IN BED WITH EYES CLOSED, BREATHING EVEN AND UNLABORED. CALL LIGHT WITHIN REACH, BED RAILS UP, AT THE BEDSIDE. ASSUMING CARE OF PT WITH ARNALDO MARIEE.
--- NOTE | 2023-03-01 07:30 | NUR ---
REPORT RECEIVED FROM ARNALDO HITCHCOCK. THIS RN ASSUMING CARE OF PT WITH ARNALDO OLIVAS. PT RESTINGWITH EYES CLOSED, RESPIRATIONS EVEN AND UNLABORED. DR. WILKS UPDATED ON PT STATUS. AWAITING NEW ORDERS.
--- NOTE | 2023-03-01 08:51 | NUR ---
PT CALL LIGHT ON. PT REQUESTS PAIN MEDICATIONS FOR 4/10 PAIN AND IN ANTICIPATION OF DISCHRAGE AND INCREASED ACTIVITY. SEE MAR FOR MEDICATION GIVEN. ADDITIONAL BREAKFAST FOOD ORDERED PER PT REQUEST, SOFT DIET. PT ENCORUAGED TO GET UP TO AMBULATE AND GET DRESSED SHE FEELS READY. PT STEADY ON FEET, AT BEDSIDE, NO ASSISTANCE NEEDED. IV FLUSHED AND SALINE LOCKED PER MD ORDER. NO ADDITIONAL REQUESTS OR COMPLAINTS. CALL LIGHT WITHIN REACH. BED RAILS UP.
--- NOTE | 2023-03-01 09:10 | DS ---
[facility] [address] [place], [place] [address] Signed ADMISSION DATE: 02/26/2023 DISCHARGE DATE: 03/01/2023 FINAL DIAGNOSIS: Perforated polypectomy site hepatic flexure. PROCEDURES: Laparotomy with primary repair and drain placement. HISTORY OF PRESENT ILLNESS: Rhonda is a 62-year-old obese diabetic female who came to see me for a routine screening colonoscopy. We removed a small 6 mm polyp at the hepatic flexure. She came back the next day with what seems like pain in the right lower quadrant to the emergency room. Ultrasound of the pelvis and right upper quadrant were not forthcoming. She therefore had a CT scan which showed some air and inflammatory changes and edema of the colon on the right side. Her white count was normal. She was certainly tender on the right side. I explained to Cas, her as well as the patient we needed to take her to the operating room to repair that. HOSPITAL COURSE: The patient was taken directly from the ER over the OR for mini laparotomy and we brought the hepatic flexure and we repaired that perforation in two layers. It was posteriorly. We left to drain behind the colon as well. She has done well both intraop and postop. At this point, she has been tolerating diet and having flatus and ambulating around the hospital. Very little serous fluid out of her drain. We therefore removed it today. [place] remain in place. Abdomen is benign. Incision is unremarkable. She and her felt she was at a point she could go home. DISCHARGE PLANS AND MEDICATIONS: Rhonda is going to be discharged to home with hydrocodone 10/325 one tab p.o. q.6 hours p.r.n. for severe postoperative pain. Dispense 20 tablets with no refills. She can use Tylenol p.r.n. for qmtf-hd-adjepded postoperative pain. We are going to give her Levaquin 500 mg one p.o. daily for four days. We will also add Flagyl 250 mg one p.o. t.i.d. for four days. She will resume all her chronic medications at home as we have done for her here at the hospital. She will follow her regular diabetic diet. She can perform her activities of daily living including walking up and down stairs; showering and bathing as usual. She is not to do any heavy pushing, pulling, or lifting over about 20 pounds. She is not to drive on narcotics. She is going to use dry gauze and tape over the drain site twice a day for three or four days. Once the drainage stops she can discontinue the dressing. In the meantime, she can remove the dressing and shower and Electronically Signed By: ADEOLA WILKS MD 03/01/23 0910 PATIENT NAME: RHONDA ADAME DISCHARGE SUMMARY DATE OF : 58 REPORT #: [id number] PHYSICIAN: ADEOLA WILKS MD PCP: FRANCESCA FLORES PAC REPORT IS CONFIDENTIAL AND NOT TO BE RELEASED WITHOUT AUTHORIZATION [address] [address] Signed bathe as usual. She will come back to my office in about 7-10 days for followup and staple removal. She and her have expressed understanding and agreed above plan. Adeola Wilks MD ALB/MODL /[id number] cc: MD Francesca Chaparro PA-C Copies: ADEOLA WILKS MD, ERIKA PAC ~ Electronically Signed By: ADEOLA WILKS MD 03/01/23 0910 PATIENT NAME: RHONDA ADAME DISCHARGE SUMMARY DATE OF : 58 REPORT #: [id number] PHYSICIAN: ADEOLA WILKS MD PCP: FRANCESCA FLORES REPORT IS CONFIDENTIAL AND NOT TO BE RELEASED WITHOUT AUTHORIZATION
[2023-03-01] MEDS ORDERED: HYDROCODON-ACE1 EAC8 PO ×2 (09:14)
[2023-03-01] MEDS ORDERED: LEVOFLOXACIN500 MG PO ×2 (09:15)
[2023-03-01] MEDS ORDERED: FLAGYL375 MG PO ×2 (09:16)
[2023-03-01 09:17] VITALS: BP 161/83
--- NOTE | 2023-03-01 09:19 | NUR ---
MORNING ASSESSMENT. PT STATES PAIN IS CURRENTLY 4/10, REQUESTS PAIN MEDICATION, GIVEN (SEE EMAR). IV SALINE LOCKED PER ORDER. PT AMBULATES TO RESTROOM AND AROUND ROOM INDEPENDENTLY AND WITH HELP FROM FAMILY. LUNG SOUNDS CLEAR. NO EDEMA PRESENT, SWELLING IN HANDS NO LONGER PRESENT. PT TOLERATING SOFT DIET WELL, DENIES NAUSEA, BOWEL TONES ACTIVE. NO BM SINCE BEFORE SURGERY. PT CONTINUES TO VOID QUANTITY SUFFICIENT. SURGICAL WOUND SITE LIGHT PINK AROUND INCISION, HALF DOLLAR SIZE BRUISING AROUND BOTTOM OF INCISION, EDGES WELL APPROXIMATED, SCANT SEROSANGUINOUS DRAINAGE PRESENT. DOMONIQUE DRAIN REMOVED BY DR. WILKS THIS MORNING, GAUZE AND TAPE PLACED OVER INSERTION SITE POST-REMOVAL. SCANT RED SHADOWING ON GAUZE. ABDOMEN MILDLY DISTENDED, REMAINS "A LITTLE TENDER" PER PT TO PALPATION. NO REDNESS/SWELLING/SIGNS OF INFECTION PRESENT. PT AND FAMILY HAVE QUESTIONS ABOUT SHOWERING, MEDICATIONS, AND DC INSTRUCTIONS. PT AND FAMILY STATE THAT ALL QUESTIONS HAVE BEEN ANSWERED, PT STATES NO NEEDS AT THIS TIME, CALL LIGHT WITHIN REACH, PT UP TO CHAIR VISITING WITH AND DAUGHTER.
--- NOTE | 2023-03-01 10:06 | NUR ---
DISCHARGE NOTE. VSS. PT DRESSED INDEPENDENTLY. IV REMOVED WITH CATHETER INTACT, GAUZE AND COBAN APPLIED PER PROTOCOL. PHARMACY AT BEDSIDE TO REVIEW MEDICATIONS WITH PATIENT AND FAMILY. ALL PERSONAL BELONGINGS LEAVING WITH PT, HOME MEDICATIONS FROM SAFE GIVEN TO PT. DC EDUCATION COMPLETED WITH PT AND FAMILY, PT VERBALIZES UNDERSTANDING OF ALL INSTRUCTIONS, FOLLOW-UPS, MEDICATIONS, AND TEACH BACK PERFORMED. PT AND FAMILY STATE THAT ALL QUESTIONS HAVE BEEN ANSWERED AT THIS TIME. PT AMBULATES INDEPENDENTLY TO WHEELCHAIR, WHEELD TO FRONT OF BUILDING BY NURSING PERSONEL.
== END 2023-03-01 10:15 | disposition home or self-care (01) | DRG 329 ==
LOC: ED 16:02 → MS 18:55
PROVIDERS: Emergency Medicine; ADMIT Colon & Rectal Surgery; ATTEND Colon & Rectal Surgery
PROC: 0DQL0ZZ Repair Transverse Colon, Open Approach (ICD-10-PCS; principal; 2023-02-26 20:15)
DX: K91.89 Other postprocedural complications and disorders of digestive system (principal); K63.1 Perforation of intestine (nontraumatic); F32.A Depression, unspecified; I10 Essential (primary) hypertension; E78.5 Hyperlipidemia, unspecified; E66.01 Morbid (severe) obesity due to excess calories; M19.90 Unspecified osteoarthritis, unspecified site; E87.6 Hypokalemia; E83.42 Hypomagnesemia; E11.65 Type 2 diabetes mellitus with hyperglycemia; F10.90 Alcohol use, unspecified, uncomplicated; Y83.8 Other surgical procedures as the cause of abnormal reaction of the patient, or of later complication, without mention of misadventure at the time of the procedure; Z98.890 Other specified postprocedural states; Z79.899 Other long term (current) drug therapy; Z79.84 Long term (current) use of oral hypoglycemic drugs; Z68.35 Body mass index [BMI] 35.0-35.9, adult
CPT/HCPCS: 36415; 74177; 76705; 76830; 76856; 80048; 80053; 81001; 83690; 83735; 84100; 85025; 93005; 93010; 94760; 94762; A9270; J0131; J0330; J0461; J0696; J1100; J1160; J1170; J1644; J1650; J1885; J2250; J2405; J2704; J2765; J3010; J3490; J7030; J7121; Q9967